=== PATIENT | female | born 1990 | race Caucasian/White ===

== ENCOUNTER 2023-11-28 18:19 | Inpatient (IN) | payer BC ==
[2023-11-28] MEDS ORDERED: Ondansetron 4 MG/2 ML SDV IVPUSH PRN (18:47)
[2023-11-28] MEDS ORDERED: Lidocaine 1% 50 ML MDV INJECT PRN (18:47)
[2023-11-28] MEDS ORDERED: Nalbuphine 10 MG/ML Syringe IVPUSH PRN (18:47)
[2023-11-28] MEDS ORDERED: Sodium Chloride 0.9% 10 ML Syringe FLUSH PRN (18:47)
[2023-11-28] MEDS ORDERED: Oxytocin/0.9 % Sodium Chloride 30 UNIT/500 ML BAG IV SCH (19:00)
[2023-11-28] MEDS: Lactated Ringers 1,000 ML IV SCH (19:01)
[2023-11-28 19:03] LABS: BASOPHILS ABSOLUTE AUTO 0.1 K/mm3 (0.0-0.2); BASOPHILS PERCENT AUTO 0.3 % (0.0-1.0); EOSINOPHILS ABSOLUTE AUTO 0.1 K/mm3 (0.0-0.4); EOSINOPHILS PERCENT AUTO 0.6 % (0.0-6.0); HEMATOCRIT 34.9 % (37.0-47.0); IMMATURE GRAN ABSOLUTE AUTO 0.08 K/mm3 (0.00-0.05); IMMATURE GRAN PERCENT AUTO 0.5 % (0.0-0.4); LYMPHOCYTES ABSOLUTE AUTO 1.1 K/mm3 (1.0-4.8); LYMPHOCYTES PERCENT AUTO 6.2 % (24.0-44.0); MEAN CORPUSCULAR HEMOGLOBIN 26.8 pg (28.0-32.0); MEAN CORPUSCULAR HGB CONC 31.5 g/dl (32.0-36.0); MEAN CORPUSCULAR VOLUME 84.9 fl (83.0-99.0); MEAN PLATELET VOLUME 12.4 fl (9.4-12.3); MONOCYTES ABSOLUTE AUTO 0.8 K/mm3 (0.0-0.8); MONOCYTES PERCENT AUTO 4.7 % (0.0-8.0); NEUTROPHILS ABSOLUTE AUTO 15.1 K/mm3 (1.8-7.7); NEUTROPHILS PERCENT AUTO 87.7 % (41.0-71.0); PLATELET COUNT,PLT 231 K/mm3 (150-400); RED BLOOD CELL COUNT 4.11 M/mm3 (4.10-5.30)
[2023-11-28] MEDS: Penicillin G Potassium 5 MILLUNITS in Sodium Chloride 0.9% 100 ML IV SCH (19:06)
[2023-11-28 19:35] LABS: SLIDE REVIEW ABNORMAL SMEAR
[2023-11-28] MEDS: Bupivacaine/fentaNYL/NS 100 ML Bag EPIDUR PRN (20:24)
[2023-11-28] MEDS: ePHEDrine 50 MG/ML SDV IVPUSH PRN (21:01)
[2023-11-28] MEDS: Calcium Carbonate 500 MG Tab.Chew PO PRN (21:24)
[2023-11-28] MEDS: Penicillin G Potassium 2.5 MILLUNITS in Sodium Chloride 0.9% 100 ML IV SCH (23:10)
[2023-11-28] MEDS: diphenhydrAMINE 50 MG/ML SDV IVPUSH PRN (23:58)
[2023-11-29] MEDS ORDERED: Acetaminophen 325 MG Tab PO PRN (03:27)
[2023-11-29] MEDS ORDERED: Sennosides 8.6 MG Tab PO PRN (03:27)
[2023-11-29] MEDS: Oxytocin/0.9 % Sodium Chloride 30 UNIT/500 ML BAG IV SCH (04:41)
[2023-11-29] MEDS: Benzocaine/Menthol 20%-0.5% Spray 78 GM Cannister TOP PRN (05:24)
[2023-11-29] MEDS: Witch Hazel Medicated Pads 40/Jar TOP PRN (05:24)
[2023-11-29] MEDS: Ibuprofen 800 MG Tab PO SCH (07:33)
[2023-11-29] MEDS: Sodium Chloride 0.9% 10 ML Syringe FLUSH SCH (07:34)
[2023-11-29] MEDS: Sertraline 50 MG Tab PO SCH (08:57)
[2023-11-29] MEDS: Pantoprazole 40 MG Tab.CR PO SCH (09:01)
[2023-11-30 06:42] LABS: HEMATOCRIT 26.2 % (37.0-47.0); MEAN CORPUSCULAR HEMOGLOBIN 26.9 pg (28.0-32.0); MEAN CORPUSCULAR HGB CONC 31.3 g/dl (32.0-36.0); MEAN CORPUSCULAR VOLUME 85.9 fl (83.0-99.0); MEAN PLATELET VOLUME 11.8 fl (9.4-12.3); PLATELET COUNT,PLT 175 K/mm3 (150-400); RED BLOOD CELL COUNT 3.05 M/mm3 (4.10-5.30); WHITE BLOOD CELL COUNT,WBC 8.37 K/mm3 (3.9-11.3)
[2023-11-30 06:50] LABS: HEMOGLOBIN 8.2 gm/dl (12.0-16.0)
== END 2023-11-30 15:27 | disposition home or self-care (01) | DRG 560 ==
LOC: JD.OBCHECK 18:19 → JD.OB 18:51 → OBSVTOIN 11-29 02:44 → JD.OB 11-29 02:45
PROVIDERS: ADMIT Obstetrics & Gynecology; ATTEND Obstetrics & Gynecology
PROC: 10E0XZZ Delivery of Products of Conception, External Approach (ICD-10-PCS; principal; 2023-11-29)
PROC: 0KQM0ZZ Repair Perineum Muscle, Open Approach (ICD-10-PCS; 2023-11-29)
PROC: 3E0R3BZ Introduction of Anesthetic Agent into Spinal Canal, Percutaneous Approach (ICD-10-PCS; 2023-11-29)
PROC: 00HU33Z Insertion of Infusion Device into Spinal Canal, Percutaneous Approach (ICD-10-PCS; 2023-11-29)
PROC: 10907ZC Drainage of Amniotic Fluid, Therapeutic from Products of Conception, Via Natural or Artificial Opening (ICD-10-PCS; 2023-11-29)
PROC: 10D17Z9 Manual Extraction of Products of Conception, Retained, Via Natural or Artificial Opening (ICD-10-PCS; 2023-11-29)
DX: O99.824 Streptococcus B carrier state complicating childbirth (principal); Z37.0 Single live birth; Z3A.39 39 weeks gestation of pregnancy; O70.1 Second degree perineal laceration during delivery; Z88.8 Allergy status to other drugs, medicaments and biological substances; O72.2 Delayed and secondary postpartum hemorrhage
CPT/HCPCS: 36415; 51702; 59025; 59409; 85025; 85027; 86592; 86850; 86900; 86901; A9270-GY; J1200; J2540; J3490; J7120